=== PATIENT | female | born 1975 | race Caucasian/White ===

== ENCOUNTER 2017-05-11 18:52 | Emergency (ER) | payer SELFPAY ==
[~2017-05-11] VITALS: Ht 154.9 cm; Wt 62.3 kg
[2017-05-11 19:09] VITALS: BP 114/85
== END 2017-05-11 22:17 | disposition left against medical advice (07) ==
LOC: ED 18:52
DX: Z53.21 Procedure and treatment not carried out due to patient leaving prior to being seen by health care provider (principal)